=== PATIENT | male | born 1965 | race Two or more races ===

== ENCOUNTER → 2025-01-13 | Outpatient (CLI) | payer MEDICAID, SELFPAY ==
--- NOTE | 2025-01-13 14:02 | XR_ITS ---
Examination: Knee, right , 3 views Technique: Knee AP, lateral, oblique 3 views Date and time of exam: January 13, 2025 1412 hours INDICATIONS: Right knee pain beginning several years ago. FINDINGS: Moderate to advanced tricompartment osteoarthritis, most prominent medial patellofemoral joints No fracture 14 mm ossified joint body in the suprapatellar joint space and 10 mm ossified body in the posterior joint space IMPRESSION: Moderate to advanced tricompartment osteoarthritis
== END | disposition home or self-care (01) ==
PROVIDERS: PCP Emergency Medicine; Referring Provider Physician Assistant; Visit Provider Physician Assistant
DX: M17.11 Unilateral primary osteoarthritis, right knee (principal)
CPT/HCPCS: 73562

== ENCOUNTER → 2025-02-05 | Outpatient (CLI) | payer MEDICAID, SELFPAY ==
--- NOTE | 2025-02-05 12:30 | XR_ITS ---
Exam: MRI knee without contrast, right Date and time of exam: February 05, 2025 1340 hours INDICATIONS: Right knee pain beginning 3 months ago Technique: Multiple axial, coronal, and sagittal sections on the knee have been obtained. T2-Weighted sagittal, fat-suppressed images, TR 3,500, TE 62, T2 weighted coronal fat-saturated images, TR 3,500, TE 62 Proton density sagittal sections, TR 1800, TE 31. T-1 weighted coronal images, TR 524, TE 13.0 Findings: Medial meniscus anterior horn intact. Medial meniscus, body truncation inner margin. Posterior horn medial meniscus large oblique linear tear communicating inferior articular surface with 6 cm popliteal cyst. Lateral meniscus anterior horn is intact Lateral meniscus, body is intact Posterior horn lateral meniscus is intact Anterior cruciate ligament high-grade sprain Posterior cruciate ligament appears intact. Knee effusion is moderate. Quadriceps and patellar tendons appear intact. There is no evidence of tendinosis. Inflammatory change or fracture of Hoffa's fat pad is not seen. Medial patellar facet demonstrates moderate thinning. Lateral patellar facet cartilage demonstrates moderate thinning. Trochlear cartilage demonstrates moderate thinning. Marrow signal adequate. Medial collateral ligament appears intact. No meniscocapsular separation is seen. Illiotibial band and fibular collateral ligament are intact. Biceps femoris tendons appear intact. Medial femoral condylar articular cartilage demonstrates severe thinning. Lateral femoral condylar articular cartilage demonstratesmoderate thinning. Tibial plateau cartilage demonstrates severe medial thinning. Impression: Tears of the body and posterior horn medial meniscus High-grade sprain anterior cruciate ligament
== END | disposition home or self-care (01) ==
LOC: SMRI 12:01
PROVIDERS: PCP Physician Assistant; Referring Provider Physician Assistant; Visit Provider Physician Assistant
DX: S83.241A Other tear of medial meniscus, current injury, right knee, initial encounter (principal); S83.511A Sprain of anterior cruciate ligament of right knee, initial encounter; X58.XXXA Exposure to other specified factors, initial encounter
CPT/HCPCS: 73721

== ENCOUNTER 2025-05-01 08:11 | Emergency (ER) | payer MEDICAID, SELFPAY ==
[2025-05-01 08:22] VITALS: BP 149/86; PULSE 50; RESP 18; TEMP 36.8; O2SAT 98; BMI 25.7
--- NOTE | 2025-05-01 08:41 | XR_ITS ---
Examination: Left elbow 3 views Technique: Elbow AP, oblique, lateral 3 views Exam date and time: May 01, 2025, 0843 hours INDICATIONS: Left elbow pain beginning 3 weeks ago FINDINGS: Soft tissue swelling dorsal to the proximal ulna No fracture No foreign body No elbow effusion. IMPRESSION: Soft tissue swelling dorsal to the proximal ulna, recommend ultrasound soft tissue elbow follow-up to exclude soft tissue abscess
--- NOTE | 2025-05-01 09:27 | PD.EDSKIN ---
ED Skin Abcess FB-RME/HPI General Chief complaint: Skin/Abscess/Foreign Body Stated complaint: Left arm/ left elbow abscess X 2 weeks Time Seen by Provider: 05/01/25 08:20 Arrival date/time: 05/01/25 08:11 59-year-old male presents to the emergency department today for complaints of left elbow swelling and pain patient presents with ongoing for last 2 weeks reports worse with movement Limitations: no limitations Related Data Home Medications ?Medication ?Instructions ?Recorded ?Confirmed atorvastatin 20 mg tablet 20 mg PO QDAY 10/09/22 10/10/22 hydroxyzine HCl 25 mg tablet 25 mg PO QDAY 10/09/22 10/10/22 Held on 10/10/22. Instructions: Resume on 10/11/22. lisinopril 10 mg tablet 10 mg PO QDAY 10/09/22 10/10/22 tamsulosin 0.4 mg capsule 0.4 mg PO QDAY 10/09/22 10/10/22 Previous Rx's ?Medication ?Instructions ?Recorded ibuprofen 800 mg tablet 800 mg PO TID PRN pain #30 tabs 05/01/25 Allergies Allergy/AdvReac Type Severity Reaction Status Date / Time No Known Allergies Allergy Verified 05/01/25 08:15 Review of Systems Review of Systems Systems Reviewed: All systems reviewed, normal except as documented Constitutional Constitutional: Reports system reviewed and no additional complaints, except as documented, Denies fever(s) and Denies headache(s) Eyes Eyes: Reports system reviewed and no additional complaints, except as documented and Denies blurry vision ENT Ears, Nose, Mouth, and Throat: Reports system reviewed and no additional complaints, except as documented, Denies headache(s), Denies nasal congestion and Denies nasal discharge Cardiovascular Cardiovascular: Reports system reviewed and no additional complaints, except as documented, Denies chest pain and Denies dyspnea Respiratory Respiratory: Reports system reviewed and no additional complaints, except as documented, Denies chest congestion, Denies cough and Denies dyspnea Gastrointestinal Gastrointestinal: Reports system reviewed and no additional complaints, except as documented and Denies abdominal pain Musculoskeletal Musculoskeletal: Reports system reviewed and no additional complaints, except as documented, Reports arthralgias and Reports joint swelling Integumentary/Breasts Skin/Breast: Reports system reviewed and no additional complaints, except as documented and Denies rash Neurologic Neurologic: Reports system reviewed and no additional complaints, except as documented, Reports as per HPI and Denies headache(s) Past Medical History Past Medical History NEUROLOGIC: Negative Neurological Disorders or Seizures CARDIAC: Positive Cardiac Disorders, Hypercholesterolemia and Hypertension; Negative Congestive Heart Failure RESPIRATORY: Negative Chronic Obstructive Pulmonary Disease (COPD) GASTROINTESTINAL: Positive Gastrointestinal Disorders and Hemorrhoids GENITOURINARY: Negative Genitourinary Disorders or Renal Disease MUSCULOSKELETAL: Positive Musculoskeletal Disorders and Arthritis ENDOCRINE: Negative Endocrine Disorders, Diabetes Mellitus Type 1 or Diabetes Mellitus Type 2 HEMATOLOGIC: Negative Blood Disorders OTHER HISTORY: Negative Autoimmune Disease, Blood Transfusions or Anesthesia Reactions Family History FAMILY HISTORY: Negative Family Cardiac Disorders Social History SMOKING STATUS: Never smoker SUBSTANCE USE: does not use ED Exam General Limitations: Present no limitations General appearance: Present alert and in no apparent distress Head Head exam: Present atraumatic Eye Eye exam: Present normal appearance, PERRL and EOMI ENT ENT exam: Present normal exam, normal oropharynx and mucous membranes moist Neck Neck exam: Present normal inspection, full ROM and trachea midline Chest Chest inspection: Present normal inspection and symmetric chest wall rise Respiratory Respiratory exam: Present normal lung sounds bilaterally Cardiovascular Cardiovascular exam: Present regular rate, normal rhythm and normal heart sounds Abdominal Exam Abdominal exam: Present soft and normal bowel sounds Extremities Exam Extremities exam: Present full ROM, tenderness and joint swelling Back Exam Back exam: Present normal inspection and full ROM Neurological Exam Neurological exam: Present alert, oriented X3 and CN II-XII intact Psychiatric Psychiatric exam: Present normal affect and normal mood Skin Skin exam: Present warm, dry, intact and normal color Course Quality Measures none Orders Category Date Time Status saurabh wrap [Splint / Immobilizer] STAT Care 05/01/25 08:41 Active XR elbow comp LT min 3V Stat Exams 05/01/25 08:41 Completed Ibuprofen Tab [Motrin Tab] Med 05/01/25 08:42 Discontinued 800 mg PO X1 ONE Vital Signs Vital signs: Vital Signs Temperature 98.3 F 05/01/25 08:22 Pulse Rate 50 L 05/01/25 08:22 Respiratory Rate 18 05/01/25 08:22 Blood Pressure 149/86 H 05/01/25 08:22 Pulse Oximetry (%) 98 05/01/25 08:22 Oxygen Delivery Method Room Air 05/01/25 08:22 O2 saturation 98% room air WNL Skin / Abscess / Foreign Body MDM Narrative MDM Narrative:: 59-year-old male presents to the emergency department today for complaints of left elbow swelling and pain patient presents with ongoing for last 2 weeks reports worse with movement On exam patient has swelling left elbow consistent with bursitis Imaging of the left elbow obtained no acute fracture or dislocation noted no acute foreign body noted Patient structured to rest the elbow patient was placed in Saurabh wrap and a sling Patient given appropriate discharge home ibuprofen Patient discharged home in no distress to follow-up with primary care doctor in the next 24 to 48 hours and for any worsening symptoms to return to the ER immediately Patient data External records reviewed:: [facility] previous records Clinical information provided by:: patient Social determinants that could affect healthcare access:: none Patient has the following chronic illnesses:: History How is presenting disease/condition affected by chronic disease/condition?: caused by Evaluation data The following diagnostics were reviewed and interpreted by me:: radiology exam(s) Lab and/or radiology exams considered but not ordered:: Radiology obtained Interpretation Summary: Reviewed by me Medications / Prescriptions Medications or Prescriptions considered but not ordered:: Given Medication administrations:: Medication Administration History Discontinued Medications Ibuprofen (Ibuprofen Tab 400 Mg Tablet) 800 mg PO X1 ONE Stop: 05/01/25 08:43 Given Consultations Consultation(s) initiated? (list below): No Diagnosis Skin/Abscess Differential Diagnosis: other (Bursitis) Most likely diagnosis given after review of the tests above:: Bursitis Admission Indicated Admission indicated?: not indicated Admission Request Was there a request for admission?: No Disposition Plan Disposition Plan: Discharge Discharge Attestation Discharge Attestation: The patient and all family members were given an opportunity to ask questions and understood the discharge instructions. Discharge instructions specifically effects, indications for sooner follow up or return to the emergency department, and the expected course of current diagnosis. Patient condition: Stable Discharge Plan Plan Patient Disposition: HOME (Self Care) Discharge Disposition comment: Stable Prescriptions/Referrals Prescriptions/Med Rec: New ibuprofen 800 mg tablet 800 mg PO TID PRN (Reason: pain) Qty: 30 0RF No Action atorvastatin 20 mg tablet 20 mg PO QDAY Patient Comments: TOME BATOOL TABLETA POR V A ORAL TODOS LOS D EN LA NOCHE tamsulosin 0.4 mg capsule 0.4 mg PO QDAY Patient Comments: TOME 1 C PSULA POR V A ORAL TODOS LOS D lisinopril 10 mg tablet 10 mg PO QDAY Patient Comments: TOME BATOOL TABLETA TODOS LOS D hydroxyzine HCl 25 mg tablet 25 mg PO QDAY Patient Comments: TOME BATOOL TABLETA POR V A ORAL TODOS LOS D EN LA NOCHE CU[place]O SEA NECESARIO Referrals: Gisell Herron FNP-C [Primary Care Provider] - 05/04/25 Problem List Clinical Impression: Olecranon bursitis of left elbow Patient/Caregiver Discharge Instructions Education Materials: ED Bursitis Additional Instructions: Please follow up with your primary care doctor in the next 24-48hrs for any worsening symptoms return here immediately Print Language: [place] Stand Alone Forms: Rhianna Award Info., Work/School Release, Patient Portal Info Letter PA/NAGI Supervising Physician HASEEB/NAGI Supervising Physician: marlon
== END 2025-05-01 09:59 | disposition home or self-care (01) ==
PROVIDERS: Emergency Provider Nurse Practitioner Primary Care
DX: M70.32 Other bursitis of elbow, left elbow (principal)
CPT/HCPCS: 73080; 99284